=== PATIENT | male | born 1985 ===

== ENCOUNTER 2022-06-26 19:30 | Outpatient (CLI) | payer OTHER | END 2022-06-26 19:31 | disposition home or self-care (01) | LOC: SLEEPLAB 19:30 | PROVIDERS: ATTEND Physician Assistant | DX: G47.33 Obstructive sleep apnea (adult) (pediatric) (principal); R53.83 Other fatigue; G31.84 Mild cognitive impairment of uncertain or unknown etiology; K21.9 Gastro-esophageal reflux disease without esophagitis; R06.83 Snoring; F41.9 Anxiety disorder, unspecified; F32.9 Major depressive disorder, single episode, unspecified; R35.1 Nocturia; G47.00 Insomnia, unspecified | CPT/HCPCS: 95810 ==